=== PATIENT | female | born 1960 | race Hispanic/Latino ===

== ENCOUNTER 2023-01-03 18:34 | Inpatient (IN) | payer OTHER ==
[~2023-01-03 18:34] MED LIST: Iopamidol-370 76% 500 ML MDV (1 ML CHARGE) ONE
[2023-01-03 19:40] LABS: #Basophils 0.1 thou/uL (0.0-0.2); #Eosinphils 0.2 thou/uL (0.0-0.7); #Monocytes 0.7 thou/uL (0.11-0.59); #Neutrophils 7.1 thou/uL (1.40-6.50); %Basophils 0.5 % (0.0-1.0); %Eosinophils 1.8 % (0.0-10.0); %Lymphocytes 22.4 % (21.0-51.0); %Monocytes 6.6 % (0.0-10.0); %Neutrophils 68.1 % (42.0-75.0); Hemoglobin 12.5 g/dL (12.0-16.0); Mean Corpuscular Hemoglobin 27.4 pg (27.0-31.0); Mean Corpuscular Volume 88.2 fl (78.0-98.0); Mean Platelet Volume 10.6 fL (7.4-10.4); Platelet Count 190 10x3/uL (130-400); RBC Distribution Width 15.7 % (11.5-14.5); Red Blood Cell (RBC) Count 4.57 mill/uL (4.20-5.40); White Blood Cell (WBC) Count 10.4 10x3/uL (4.8-10.8)
[2023-01-03 20:25] LABS: ALT (SGPT) 14 U/L (8-55); AST (SGOT) 11 U/L (5-34); Albumin 3.6 g/dL (3.4-4.8); Alkaline Phosphatase 48 U/L (40-110); Anion Gap 16 mmol/L (10-20); BUN (Urea Nitrogen) 35 mg/dL (9.8-20.1); Bilirubin, Total Less than 0.2 mg/dL (0.2-1.2); Calc. Creatinine Clearance 0 mL/min (70-130); Calcium 8.4 mg/dL (7.8-10.44); Carbon Dioxide 19 mmol/L (23-31); Chloride 108 mmol/L (98-107); Estimated GFR 39; Globulin 2.7 g/dL (2.4-3.5); Glucose 149 mg/dL (80-115); Potassium 4.5 mmol/L (3.5-5.1); Protein, Total 6.3 g/dL (5.8-8.1); Sodium 138 mmol/L (136-145)
[2023-01-03] MEDS ORDERED: Acetaminophen 325 MG TAB PO PRN (22:38)
[2023-01-03] MEDS ORDERED: Ondansetron ODT 4 MG TAB PO PRN (22:38)
[2023-01-03] MEDS ORDERED: Dextrose 50% Abboject 50 ML SYRINGE SLOW IVP PRN (22:44)
[2023-01-03] MEDS ORDERED: Glucagon 1 MG/ML KIT IM PRN (22:44)
[2023-01-03] MEDS ORDERED: HumaLOG 300 UNITS/3 ML VIAL SC PRN (22:44)
[2023-01-03] MEDS ORDERED: Dextrose 5% in Water 1,000 ML IV PRN (22:44)
[2023-01-03] MEDS ORDERED: Morphine 4 MG/ML VIAL SLOW IVP PRN (22:49)
[2023-01-03] MEDS ORDERED: Apixaban 5 MG TAB PO SCH (23:00)
[2023-01-04 00:14] LABS: Lactic Acid 1.3 mmol/L (0.5-2.2)
[2023-01-04 00:15] LABS: Hemoglobin A1c 7.4 % (4.0-6.0)
[2023-01-04 03:03] VITALS: BMI 46.9
[2023-01-04] MEDS: Sodium Chloride 0.9% 1,000 ML IV SCH ×2 (03:32→08:01)
[2023-01-04 04:47] LABS: #Basophils 0.1 thou/uL (0.0-0.2); #Eosinphils 0.3 thou/uL (0.0-0.7); #Monocytes 0.7 thou/uL (0.11-0.59); #Neutrophils 4.3 thou/uL (1.40-6.50); %Basophils 0.8 % (0.0-1.0); %Eosinophils 3.4 % (0.0-10.0); %Monocytes 8.2 % (0.0-10.0); Hemoglobin 11.8 g/dL (12.0-16.0); Mean Corpuscular HGB CONC 31.7 g/dL (32.0-36.0); Mean Corpuscular Hemoglobin 27.6 pg (27.0-31.0); Mean Corpuscular Volume 87.1 fl (78.0-98.0); Mean Platelet Volume 10.4 fL (7.4-10.4); Platelet Count 177 10x3/uL (130-400); RBC Distribution Width 15.9 % (11.5-14.5); Red Blood Cell (RBC) Count 4.27 mill/uL (4.20-5.40); White Blood Cell (WBC) Count 7.9 10x3/uL (4.8-10.8)
[2023-01-04 05:06] LABS: Lactic Acid 1.4 mmol/L (0.5-2.2)
[2023-01-04 05:11] LABS: Anion Gap 10 mmol/L (10-20); BUN (Urea Nitrogen) 29 mg/dL (9.8-20.1); Calc. Creatinine Clearance 92 mL/min (70-130); Calcium 8.2 mg/dL (7.8-10.44); Carbon Dioxide 23 mmol/L (23-31); Chloride 108 mmol/L (98-107); Estimated GFR 53; Glucose 125 mg/dL (80-115); Potassium 4.5 mmol/L (3.5-5.1); Sodium 136 mmol/L (136-145)
[2023-01-04 05:50] LABS: Bacteria/HPF None Seen HPF (None Seen); Bilirubin Negative (Negative); Blood, Urine Negative (Negative); CAUTI Indications for Culture Pelvic or flank pain; Clarity Clear (Clear); Glucose, Urine (Dipstick) Normal (Negative); Ketone, Urine Negative (Negative); Leukocyte Negative Leu/uL (Negative); Nitrite Negative (Negative); Protein, Urine (Dipstick) Negative (Neg-Trace); RBC/HPF 0-3 HPF (0-3); Specific Gravity, Urine 1.048 (1.002-1.036); Urobilinogen Normal mg/dL (Less than 2); WBC/HPF 0-3 HPF (0-3); pH, Urine 5.5 (5.0-9.0)
[2023-01-04 05:52] LABS: Urine Culture Reflex No No
[2023-01-04] MEDS: Apixaban 5 MG TAB PO SCH ×2 (07:58→20:36)
[2023-01-04] MEDS ORDERED: Ipratropium/Albuterol 3 ML NEB NEB PRN (10:19)
[2023-01-04] MEDS: Lactated Ringer's 1,000 ML IV SCH (10:56)
[2023-01-04] MEDS: metFORMIN 500 MG TAB PO SCH (16:10)
[2023-01-04] MEDS: Mometasone 200 MCG/Formoterol 5 MCG 120 PUFF INHALER INH SCH (19:29)
[2023-01-04] MEDS: Montelukast Sodium 10 mg Tablet PO SCH (20:37)
[2023-01-04] MEDS: Sertraline 100 MG TAB PO SCH (20:37)
[2023-01-04] MEDS: traZODone HCl 50 MG TAB PO SCH (20:37)
[2023-01-05] MEDS: Lactated Ringer's 1,000 ML IV SCH (02:21)
[2023-01-05 05:05] LABS: Anion Gap 10 mmol/L (10-20); BUN (Urea Nitrogen) 18 mg/dL (9.8-20.1); Calc. Creatinine Clearance 120 mL/min (70-130); Calcium 8.6 mg/dL (7.8-10.44); Carbon Dioxide 22 mmol/L (23-31); Chloride 111 mmol/L (98-107); Estimated GFR 73; Glucose 123 mg/dL (80-115); Magnesium 1.7 mg/dL (1.6-2.6); Potassium 4.3 mmol/L (3.5-5.1); Sodium 139 mmol/L (136-145)
[2023-01-05] MEDS: Mometasone 200 MCG/Formoterol 5 MCG 120 PUFF INHALER INH SCH ×2 (07:14→19:10)
[2023-01-05] MEDS: metFORMIN 500 MG TAB PO SCH ×3 (08:16→18:08)
[2023-01-05] MEDS: Aspirin 325 MG TAB PO SCH (08:16)
[2023-01-05] MEDS: Apixaban 5 MG TAB PO SCH (08:16)
[2023-01-05 09:43] LABS: ALT (SGPT) 14 U/L (8-55); AST (SGOT) 14 U/L (5-34); Albumin 3.5 g/dL (3.4-4.8); Alkaline Phosphatase 42 U/L (40-110); Bilirubin, Direct 0.1 mg/dL (0.1-0.3); Bilirubin, Total 0.2 mg/dL (0.2-1.2); Lipase 43 U/L (8-78)
[2023-01-05 21:14] LABS: Campy jejuni + coli by PCR Negative (Negative); STEC Shiga Toxin 1+2 Negative (Negative); Salmonella spp. by PCR Negative (Negative); Shigella spp + EIEC by PCR Negative (Negative)
[2023-01-05] MEDS: Montelukast Sodium 10 mg Tablet PO SCH (22:07)
[2023-01-05] MEDS: traZODone HCl 50 MG TAB PO SCH (22:07)
[2023-01-05] MEDS: Sertraline 100 MG TAB PO SCH (22:08)
[2023-01-06] MEDS: Mometasone 200 MCG/Formoterol 5 MCG 120 PUFF INHALER INH SCH (06:50)
[2023-01-06] MEDS: Aspirin 325 MG TAB PO SCH (08:45)
[2023-01-06] MEDS: metFORMIN 500 MG TAB PO SCH (08:45)
[2023-01-06 15:46] VITALS: BP 135/65; TEMP 97.1
== END 2023-01-06 16:58 | disposition home or self-care (01) | DRG 641 ==
LOC: ERS 18:34 → SUATTDRO 18:34 → 2NO 22:38 → EDBD 22:38
PROVIDERS: ADMIT Family Medicine; ATTEND Internal Medicine
DX: E86.9 Volume depletion, unspecified (principal); N17.9 Acute kidney failure, unspecified; I47.1 Supraventricular tachycardia; I50.30 Unspecified diastolic (congestive) heart failure; Z68.42 Body mass index [BMI] 45.0-49.9, adult; E87.20 Acidosis, unspecified; E11.9 Type 2 diabetes mellitus without complications; I11.0 Hypertensive heart disease with heart failure; G89.29 Other chronic pain; M19.90 Unspecified osteoarthritis, unspecified site; E66.9 Obesity, unspecified; J44.9 Chronic obstructive pulmonary disease, unspecified; F41.9 Anxiety disorder, unspecified; E86.0 Dehydration; I07.1 Rheumatic tricuspid insufficiency; T50.2X5A Adverse effect of carbonic-anhydrase inhibitors, benzothiadiazides and other diuretics, initial encounter; Z88.5 Allergy status to narcotic agent
CPT/HCPCS: 36415; 36416; 71275; 74177; 76705; 80048; 80076; 81001; 83036; 83605; 83690; 83735; 83880; 84443; 85025; 87040; 87324; 87449; 87505; 93005; 93010; 93306; 96360; J1650; J7050; J7120; Q9967